=== PATIENT | female | born 1990 | race Caucasian/White ===

== ENCOUNTER → 2018-12-04 | Outpatient (CLI) | payer OTHER ==
[2018-12-04 15:58] LABS: Vitamin D 25 Hydroxy 27.4 ng/mL (30.0-100.0)
[2018-12-04 16:07] LABS: Insulin Level 4.8 mIU/mL (3.0-25.0)
[2018-12-04 16:16] LABS: ALT 17 U/L (8-44); AST 24 U/L (13-35); Glucose 89 mg/dL (70-110)
[2018-12-04 16:26] LABS: HCG,Quantitative Serum <2.0 mIU/mL
[2018-12-04 17:39] LABS: Hemoglobin A1C 5.3 % (4.0-6.0)
[2018-12-04 17:40] LABS: Thyroid Peroxidase Antibodies 970.7 U/mL (0.0-60.0)
[2018-12-05 12:28] LABS: Anti-Mullerian Hormone 5.87 ng/mL (0.69 - 13.39)
[2018-12-06 05:44] LABS: Varicella IgM Antibody 0.34 INDEX (<=0.90)
== END | disposition home or self-care (01) ==
LOC: LABWHC1 08:38
PROVIDERS: ATTEND Physician Assistant
DX: N92.6 Irregular menstruation, unspecified (principal)
CPT/HCPCS: 36415; 82306; 82397; 82565; 82670; 82947; 83001; 83036; 83525; 84146; 84402; 84403; 84439; 84443; 84450; 84460; 84481; 84520; 84702; 86376; 86762; 86787; 86800; 86850; 86900; 86901

== ENCOUNTER 2020-03-18 06:02 | Inpatient (IN) | payer OTHER ==
[2020-03-18] MEDS ORDERED: TERBUTALINE 1 MG/ML VIAL SQ PRN (06:17)
[2020-03-18] MEDS ORDERED: OXYTOCIN 10 UNIT/ML 1 ML VIAL IM PRN (06:17)
[2020-03-18] MEDS ORDERED: LIDOCAINE 0.5% (PF) 5 MG/ML (50 ML SDV) SQ PRN (06:17)
[2020-03-18] MEDS ORDERED: METHYLERGONOVINE 0.2 MG/ML 1 ML AMP IM PRN (06:17)
[2020-03-18] MEDS ORDERED: CARBOPROST TROMETHAMINE 250 MCG/ML 1 ML AMP IM PRN (06:17)
[2020-03-18] MEDS: LACTATED RINGERS 1,000 ML IV SCH ×3 (06:27→16:54)
[2020-03-18] MEDS ORDERED: LACTATED RINGERS 1,000 ML IV SCH ×2 (06:30→20:30)
[2020-03-18] MEDS ORDERED: OXYTOCIN 30 UNITS/500 ML NS 30 UNIT in SALINE 1 500ML.BAG IV SCH (06:30)
[2020-03-18 06:59] LABS: Basophils # (A) 0.1 k/uL (0-0.2); Basophils % (A) 1 %; Eosinophils # (A) 0.2 k/uL (0-0.7); Eosinophils % (A) 2 %; HCT 32.7 % (34.0-46.0); HGB 10.6 gm/dL (11.4-16.0); Lymphocytes # (A) 1.6 k/uL (1.0-4.8); Lymphocytes % (A) 19 %; MCH 27.4 pg (25.0-35.0); MCHC 32.5 g/dL (31.0-37.0); MCV 84.4 fL (80.0-100.0); Mean Platelet Volume 9.3; Monocytes # (A) 0.6 k/uL (0-1.0); Monocytes % (A) 7 %; Neutrophils # (A) 5.8 k/uL (1.3-7.7); Neutrophils % (A) 68 %; Platelet Count 287 k/uL (150-450); RBC 3.87 m/uL (3.80-5.40); RDW 14.6 % (11.5-15.5); WBC 8.5 k/uL (3.8-10.6)
[2020-03-18] MEDS ORDERED: BUTORPHANOL 1 MG/ML 1 ML VIAL IV PRN (08:40)
[2020-03-18] MEDS ORDERED: PRENATAL VIT-IRON-FOLIC ACID 1 EACH CAP PO ONE (08:45)
[2020-03-18] MEDS ORDERED: fentaNYL (PF) 50 MCG/ML 5 ML AMP ONE ×2 (16:54→19:45)
[2020-03-18] MEDS ORDERED: ROPIVACAINE 5MG/ML 20ML VIAL ONE (16:54)
[2020-03-18] MEDS ORDERED: SODIUM CHLORIDE 0.9% 100 ML BAG ONE (16:54)
[2020-03-18] MEDS ORDERED: CITRIC ACID-SODIUM CITRATE 15 ML CUP PO ONE (18:59)
[2020-03-18] MEDS ORDERED: LIDOCAINE 2% (PF) 20 MG/ML 2 ML VIAL ONE (19:45)
[2020-03-18] MEDS ORDERED: ONDANSETRON 4 MG/2 ML VIAL ONE (19:45)
[2020-03-18] MEDS ORDERED: MORPHINE SULFATE (PF) 0.3 MG/0.3 ML SYR ONE (19:45)
[2020-03-18] MEDS ORDERED: OXYTOCIN 10 UNIT/ML 1 ML VIAL ONE (19:45)
[2020-03-18] MEDS ORDERED: ONDANSETRON 4 MG/2 ML VIAL IVP PRN (20:26)
[2020-03-18] MEDS ORDERED: SIMETHICONE 80 MG CHEWABLE PO PRN (20:26)
[2020-03-18] MEDS ORDERED: ACETAMINOPHEN TAB 325 MG TAB PO PRN (20:26)
[2020-03-18] MEDS ORDERED: ACETAMINOPHEN IV (For NPO) 1,000 MG in EMPTY BAG 1 BAG IVPB ONE (20:26)
[2020-03-18] MEDS ORDERED: NALOXONE 0.4 MG/ML 1 ML VIAL IV PRN (20:26)
[2020-03-18] MEDS ORDERED: METOCLOPRAMIDE 5 MG/ML 2 ML VIAL IVP PRN (20:26)
[2020-03-18] MEDS ORDERED: diphenhydrAMINE 25 MG CAP PO PRN (20:26)
[2020-03-18] MEDS ORDERED: HYDROcodone/APAP 5-325MG 1 EACH TAB PO PRN (20:26)
[2020-03-18] MEDS ORDERED: IBUPROFEN 600 MG TAB PO PRN (20:26)
[2020-03-18] MEDS ORDERED: ZOLPIDEM 5 MG TAB PO PRN (20:26)
[2020-03-18] MEDS ORDERED: diphenhydrAMINE 50 MG/ML 1 ML VIAL IVP PRN ×2 (20:26)
[2020-03-18] MEDS ORDERED: diphenhydrAMINE 50 MG CAP PO PRN (20:26)
--- NOTE | 2020-03-18 20:29 | P.HPOB ---
History of Present Illness H&P Date: 03/18/20 Chief Complaint: IUP at 40 and 0/sevenths weeks This is a pleasant 29-year-old 1 para 0 at 40-0/7 weeks that presents to labor and delivery for induction of labor. Patient conceived with Femara. Patient has had relatively uncomplicated care. This morning she notes good movement. She denies contractions vaginal bleeding or loss of fluid. Review of Systems Constitutional: Denies fatigue, Denies fever Ears, nose, mouth and throat: Denies headache Cardiovascular: Reports leg edema Gastrointestinal: Denies constipation, Denies diarrhea, Denies nausea, Denies vomiting Genitourinary: Reports Past Medical History Past Medical History: No Reported History History of Any Multi-Drug Resistant Organisms: None Reported Past Surgical History: No Surgical Hx Reported Past Anesthesia/Blood Transfusion Reactions: No Reported Reaction Past Psychological History: No Psychological Hx Reported Smoking Status: Never smoker Past Alcohol Use History: None Reported Past Drug Use History: None Reported - Past Family History Mother Family Medical History: No Reported History Medications and Allergies Home Medications Medication Instructions Recorded Confirmed Type Pnv No.95/Ferrous Fum/Folic AC 1 tab PO ONCE 03/18/20 03/18/20 History [ Multivitamin Tablet] Allergies Allergy/AdvReac Type Severity Reaction Status Date / Time No Known Allergies Allergy Verified 03/18/20 06:15 Exam Osteopathic Statement: *. No significant issues noted on an osteopathic structural exam other than those noted in the History and Physical/Consult. 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 On cervical exam cervix is noted to be 1/50/-2 amniotomy is performed and clear fluid was obtained. Results Result Diagrams: 03/18/20 06:20 Abnormal Lab Results - Last 24 Hours (Table) 07/14/20 Range/Units 06:20 Hgb 10.6 L (11.4-16.0) gm/dL Hct 32.7 L (34.0-46.0) % Assessment and Plan (1) Term Current Visit: Yes Status: Acute Code(s): Z34.90 - ENCNTR FOR SUPRVSN OF NORMAL , UNSP, UNSP TRIMESTER SNOMED Code(s): 26775901 Plan: Patient is admitted to labor and delivery for planned Pitocin induction of lab or. Pitocin induction is begun per hospital protocol. Options for analgesia during labor discussed Stadol/epidural. Patient will consider and let us know her decision. We will monitor closely.
[2020-03-18] MEDS ORDERED: OXYTOCIN 20 UNITS/1000 ML NS 1,000 ML IV SCH (20:30)
--- NOTE | 2020-03-18 20:33 | P.OP ---
Date of Procedure: 03/18/20 Preoperative Diagnosis: IUP at 40 and 0, arrest of descent and dilation, suspected occiput posterior presentation Postoperative Diagnosis: Same Procedure(s) Performed: Primary low transverse section Anesthesia: epidural (With Duramorph) Surgeon: Lindsay Palacios Pulverizer Operator #1: Alondra Velazquez Estimated Blood Loss (ml): 600 IV fluids (ml): 1,100 Urine output (ml): 400 Pathology: none sent Condition: stable Disposition: observation Indications for Procedure: This pleasant 29-year-old 1 para 0 at 40-0/7 weeks presented to labor and delivery this morning for elective induction of labor. Patient was noted to be 1-2 cm/50/-2. Patient made minimal progress throughout the day suspected occiput posterior presentation was noted given contraction pattern and lack of descent. After many hours of being 3 cm decision was made for primary C- section. Patient agreed and all questions are answered. Operative Findings: Arcuate uterus is noted normal ovaries bilaterally. Viable male infant delivered weight of 6 lbs. 14 oz. at 1957, Apgars of 9/9 at one and 5 minutes respectively. Description of Procedure: Patient was taken back to the operating suite where epidural anesthesia was found be adequate. She was prepped and draped in the normal sterile fashion in the dorsal supine position. A Pfannenstiel skin incision was made the scalpel and carried through to the underlying layer of fascia. The fascia was then incised in the midline and extended laterally. The superior aspect the fascial incision was then grasped mildred clamps, elevated and underlying rectus muscles dissected off sharply. The inferior aspect of the fascial incision was then grasped with Mildred clamps, elevated and underlying rectus muscle was dissected off sharply. The rectus muscles were then in the midline the peritoneum was identified and entered. The bladder blade was then inserted into the pelvis. The vesicouterine peritoneum was identified and the bladder flap was then created using sharp and blunt dissection. Hysterotomy incision was made with the scalpel the was encountered in an occiput transverse presentation and delivered the umbilical cord was doubly clamped and cut and infant was handed off to awaiting RN. The center was then delivered manually the three-vessel cord being noted. Cord blood was taken prior to delivery of the placenta. The uterus was then delivered from the abdomen and cleared of all clots and debris. The hysterotomy incision was then closed 0 Vicryl in a running locked fashion 2. Bleeding was noted in the right-hand side of the uterus therefore 2 [id number] sutures were used to obtain hemostasis. The pelvis then copiously irrigated and uterus returned to the abdomen. Hemostasis was appreciated. The gutters were then cleared of all clots and debris. Uterus is noted to be firm. The fascia was then closed with 0 Vicryl in a running fashion from one lateral edge the other lateral edge. Subcu tissue was irrigated and found to be hemostatic. The skin was then closed with 4-0 Vicryl in a subcuticular fashion. Steri-Strips and sterile dressings were applied as needed. Patient and tolerated procedure well and were taken to their delivery suite. All counts were noted be correct 2 at the end of the procedure.
[2020-03-18] MEDS ORDERED: IBUPROFEN IV 800 MG in SODIUM CHLORIDE 0.9% 250 ML IV ONE (21:00)
[2020-03-19 07:02] LABS: Basophils % (A) 0 %; Eosinophils # (A) 0.1 k/uL (0-0.7); Eosinophils % (A) 0 %; HCT 23.4 % (34.0-46.0); Lymphocytes # (A) 1.7 k/uL (1.0-4.8); Lymphocytes % (A) 11 %; MCH 28.6 pg (25.0-35.0); MCHC 33.5 g/dL (31.0-37.0); MCV 85.3 fL (80.0-100.0); Mean Platelet Volume 8.4; Monocytes # (A) 0.8 k/uL (0-1.0); Monocytes % (A) 5 %; Neutrophils # (A) 12.7 k/uL (1.3-7.7); Neutrophils % (A) 82 %; Platelet Count 230 k/uL (150-450); RBC 2.75 m/uL (3.80-5.40); RDW 14.7 % (11.5-15.5); WBC 15.5 k/uL (3.8-10.6)
[2020-03-19 07:12] LABS: HGB 7.9 gm/dL (11.4-16.0)
[2020-03-19] MEDS: SENNOSIDES-DOCUSATE SODIUM 1 EACH TAB PO SCH ×2 (08:31→20:37)
--- NOTE | 2020-03-19 08:32 | P.PNOBGPC ---
Subjective - Subjective Principal diagnosis: POD 1 LTCS Interval history: Patient did well overnight. She is ambulating without difficulty, we are awaiting spontaneous void status post Roy removal. She states her pain is well-controlled. She is breast-feeding without difficulty. She denies concerns this morning. Patient reports: Reports appetite normal, Reports pain well controlled, Reports ambulating normally [place]: doing well, nursing well Objective - Vital Signs Latest vital signs: Vital Signs Temp Pulse Resp BP Pulse Ox 03/19/20 04:00 98.3 F 89 16 125/77 96 03/19/20 00:00 98.4 F 86 16 124/78 97 03/18/20 22:30 99 16 132/91 99 03/18/20 22:00 88 16 128/59 100 03/18/20 21:30 107 H 16 112/72 100 03/18/20 21:15 89 16 115/70 100 03/18/20 21:00 95 16 127/71 100 03/18/20 20:45 122 H 16 100 03/18/20 20:30 96.9 F L 97 16 128/73 100 Intake and Output 03/18/20 03/19/20 03/19/20 22:59 06:59 14:59 Output Total 2700 2300 Balance -2700 -2300 Output: Urine 800 2300 Uretheral (Roy) 700 Estimated Blood Loss 1900 Other: Voiding Method Indwelling Catheter Indwelling Catheter # Voids 0 - Exam Extremities: Present: normal, edema Abdomen: Present: normal appearance, soft Incision: Present: normal, dry Uterus: Present: normal, firm - Labs Labs: Abnormal Lab Results - Last 24 Hours (Table) 03/19/20 Range/Units 06:27 WBC 15.5 H (3.8-10.6) k/uL RBC 2.75 L (3.80-5.40) m/uL Hgb 7.9 L D (11.4-16.0) gm/dL Hct 23.4 L (34.0-46.0) % Neutrophils # 12.7 H (1.3-7.7) k/uL Assessment and Plan (1) Term Current Visit: Yes Status: Acute Code(s): Z34.90 - ENCNTR FOR SUPRVSN OF NORMAL , UNSP, UNSP TRIMESTER SNOMED Code(s): 38394829 (2) Arrest of dilation, delivered, current hospitalization Current Visit: Yes Status: Acute Code(s): O62.1 - SECONDARY UTERINE INERTIA SNOMED Code(s): 36069853 (3) Arrest of descent, delivered, current hospitalization Current Visit: Yes Status: Acute Code(s): O62.1 - SECONDARY UTERINE INERTIA SNOMED Code(s): 58367363 (4) Status post delivery Current Visit: Yes Status: Acute Code(s): Z98.891 - HISTORY OF UTERINE SCAR FROM PREVIOUS SURGERY SNOMED Code(s): 687185176 Plan: This 29-year-old 1 now para 1 status post primary for arrest of descent and dilation is doing well this morning. Patient is ambulating wit hout difficulty. Her pain is well-controlled. We'll encourage increased ambulation and continue routine postoperative care. Anticipate discharge home tomorrow.
--- NOTE | 2020-03-19 11:19 | P.PN ---
Progress Note - Text 03/19 848 29-year-old female status post , patient had Duramorph for postop pain control. Patient seen and evaluated this morning she has a VAS score of 0 with no nausea vomiting or pruritus
[2020-03-19] MEDS: IBUPROFEN 200 MG TAB PO PRN ×2 (13:31→20:36)
[2020-03-20] MEDS: IBUPROFEN 200 MG TAB PO PRN ×2 (03:12→09:48)
--- NOTE | 2020-03-20 08:29 | P.DS ---
Providers Date of admission: 03/18/20 06:02 Expected date of discharge: 03/20/20 Attending physician: Lindsay Palacios Primary care physician: Stated None - Discharge Diagnosis(es) (1) Term Current Visit: Yes Status: Acute (2) Arrest of dilation, delivered, current hospitalization Current Visit: Yes Status: Acute (3) Arrest of descent, delivered, current hospitalization Current Visit: Yes Status: Acute (4) Status post delivery Current Visit: Yes Status: Acute Hospital Course: This is a 29-year-old 1 para 0 that presented to labor and delivery at 40-0/7 weeks for induction of labor. Patient had been receiving routine care which has been essentially uncomplicated. Patient did conceive this with Femara. Patient had a normal blood type of O+. Patient was admitted to labor and delivery for Pitocin induction of labor. Patient was noted to be 1-2 cm upon admission. Patient progressed very slowly through labor amniotomy was performed and clear fluid was obtained. No descent was noted after properly 13 hours of labor. Patient had only dilated to 3 cm at that time. At that time patient was offered primary for arrest of descent and dilation versus further proceeding with induction of labor. Patient elected primary . was performed without difficulty for further details on the please see the operative report. Patient delivered a liveborn male at 1957, weight of 6 lbs. 14 oz. with Apgars of 9 and 9 at one and 5 minutes respectively. Patient's course has been uneventful. On this post day #2 she is ambulating and voiding without difficulty. She is tolerating a regular diet without nausea or vomiting. She states her pain is well-controlled and she does wish discharge home. She is breast-feeding also. Patient Condition at Discharge: Good Plan - Discharge Summary New Discharge Prescriptions: No Action Pnv No.95/Ferrous Fum/Folic AC [ Multivitamin Tablet] 1 tab PO ONCE Discharge Medication List Pnv No.95/Ferrous Fum/Folic AC [ Multivitamin Tablet] 1 tab PO ONCE 03/18/20 [History] Follow up Appointment(s)/Referral(s): Lindsay Palacios DO [Doctor of Osteopathic Medicine] - 2 Weeks Patient Instructions/Handouts: (DC), (GEN) Activity/Diet/Wound Care/Special Instructions: No tub baths or intercourse until 6 weeks . Discharge Disposition: HOME SELF-CARE
[2020-03-20 10:08] VITALS: BP 115/69; PULSE 80; RESP 16; TEMP 97.6
== END 2020-03-20 15:45 | disposition home or self-care (01) | DRG 788 ==
LOC: 4FBP 06:02
PROVIDERS: ADMIT Obstetrics & Gynecology Obstetrics; ATTEND Obstetrics & Gynecology Obstetrics
PROC: 00HU33Z Insertion of Infusion Device into Spinal Canal, Percutaneous Approach (ICD-10-PCS; principal; 2020-03-18 19:45)
PROC: 3E0R3BZ Introduction of Anesthetic Agent into Spinal Canal, Percutaneous Approach (ICD-10-PCS; principal; 2020-03-18 19:45)
PROC: 10D00Z1 Extraction of Products of Conception, Low, Open Approach (ICD-10-PCS; principal; 2020-03-18 19:45)
DX: O62.0 Primary inadequate contractions (principal); O62.1 Secondary uterine inertia; Q51.810 Arcuate uterus; Z37.0 Single live birth; Z3A.40 40 weeks gestation of pregnancy
CPT/HCPCS: 85025; 86850; 86900; 86901

== ENCOUNTER 2023-02-14 10:04 | Inpatient (IN) | payer OTHER ==
[2023-02-14] MEDS ORDERED: TRANEXAMIC ACID IN NACL,ISO-OS 1,000 MG in EMPTY BAG 1 BAG IV PRN (10:21)
[2023-02-14] MEDS ORDERED: OXYTOCIN 10 UNIT/ML 1 ML VIAL IM PRN (10:21)
[2023-02-14] MEDS ORDERED: miSOPROStoL 200 MCG TAB PO PRN (10:21)
[2023-02-14] MEDS ORDERED: METHYLERGONOVINE 0.2 MG/ML 1 ML AMP IM PRN (10:21)
[2023-02-14] MEDS ORDERED: CITRIC ACID-SODIUM CITRATE 15 ML CUP PO ONE (10:21)
[2023-02-14] MEDS ORDERED: CARBOPROST TROMETHAMINE 250 MCG/ML 1 ML AMP IM PRN (10:21)
[2023-02-14] MEDS ORDERED: OXYTOCIN 30 UNITS/500 ML NS 30 UNIT in SALINE 1 500ML.BAG IV SCH (10:30)
[2023-02-14] MEDS: LACTATED RINGERS 1,000 ML IV SCH ×4 (10:34→20:24)
[2023-02-14 11:17] LABS: Basophils % (A) 0 %; Eosinophils # (A) 0.1 k/uL (0-0.7); Eosinophils % (A) 1 %; HGB 10.3 gm/dL (11.4-16.0); Hypochromasia Slight; Lymphocytes # (A) 1.6 k/uL (1.0-4.8); Lymphocytes % (A) 15 %; MCH 26.4 pg (25.0-35.0); MCHC 32.3 g/dL (31.0-37.0); Mean Platelet Volume 8.6; Monocytes # (A) 0.5 k/uL (0-1.0); Monocytes % (A) 5 %; Neutrophils # (A) 7.8 k/uL (1.3-7.7); Neutrophils % (A) 77 %; Platelet Count 329 k/uL (150-450); RDW 15.1 % (11.5-15.5); WBC 10.2 k/uL (3.8-10.6)
[2023-02-14] MEDS ORDERED: MORPHINE SULFATE (PF) 0.3 MG/0.3 ML SYR ONE (11:55)
[2023-02-14] MEDS ORDERED: fentaNYL (PF) 50 MCG/ML 2 ML AMP ONE (11:55)
--- NOTE | 2023-02-14 12:43 | P.HPOB ---
History of Present Illness H&P Date: 02/14/23 Chief Complaint: IUP @ 39 weeks, h/o section desres repeat This is a 32yo at 39 2/7 weeks of that present for RCS. She has been receiving routine care with myself which has been essentially uncomplicated. she is noting good FM, denies CTX, LOF or VB. she has a known blood type of A+, rubella status immune, B surface antigen negative, HIV negative, RPR nonreactive, group beta strep cultures are negative Review of Systems Constitutional: Denies chills, Denies fatigue, Denies fever Ears, nose, mouth and throat: Denies headache Cardiovascular: Denies leg edema Gastrointestinal: Denies nausea, Denies vomiting Genitourinary: Reports Past Medical History Past Medical History: No Reported History History of Any Multi-Drug Resistant Organisms: None Reported Past Surgical History: Section Past Anesthesia/Blood Transfusion Reactions: No Reported Reaction Smoking Status: Never smoker - Past Family History Mother Family Medical History: No Reported History Medications and Allergies Home Medications Medication Instructions Recorded Confirmed Type Pnv No.95/Ferrous Fum/Folic AC 1 tab PO DAILY 03/18/20 02/14/23 History [ Multivitamin Tablet] Aspirin 81 mg PO DAILY 02/10/23 02/14/23 History Allergies Allergy/AdvReac Type Severity Reaction Status Date / Time No Known Allergies Allergy Verified 02/14/23 10:22 Exam Osteopathic Statement: *. No significant issues noted on an osteopathic structural exam other than those noted in the History and Physical/Consult. Results Result Diagrams: 02/14/23 10:45 Assessment and Plan (1) H/O section Current Visit: Yes Status: Acute Code(s): Z98.891 - HISTORY OF UTERINE SCAR FROM PREVIOUS SURGERY SNOMED Code(s): 056766517 (2) Term Current Visit: No Status: Acute Code(s): Z34.90 - ENCNTR FOR SUPRVSN OF NORMAL , UNSP, UNSP TRIMESTER SNOMED Code(s): 48117611 Plan: 32 yo at 39 2/7 weeks that presents for RCS. she has a h/o LTCS and desires repeat section. surgery is reviewed and questions are answered will proceed with RCS.
[2023-02-14] MEDS ORDERED: diphenhydrAMINE 25 MG CAP PO PRN (12:47)
[2023-02-14] MEDS ORDERED: METOCLOPRAMIDE 5 MG/ML 2 ML VIAL IVP PRN (12:47)
[2023-02-14] MEDS ORDERED: diphenhydrAMINE 50 MG CAP PO PRN (12:47)
[2023-02-14] MEDS ORDERED: NALOXONE 0.4 MG/ML 1 ML VIAL IV PRN (12:47)
[2023-02-14] MEDS ORDERED: diphenhydrAMINE 50 MG/ML 1 ML VIAL IVP PRN ×2 (12:47)
[2023-02-14] MEDS ORDERED: ONDANSETRON 4 MG/2 ML VIAL IVP PRN (12:47)
[2023-02-14] MEDS ORDERED: ZOLPIDEM 5 MG TAB PO PRN (12:47)
--- NOTE | 2023-02-14 12:47 | P.OP ---
Date of Procedure: 02/14/23 Preoperative Diagnosis: IUP at 39-2/7 weeks, history of 1, desires repeat Postoperative Diagnosis: Same Procedure(s) Performed: Repeat section Anesthesia: spinal Surgeon: Lindsay Palacios Director Digital #1: Gerry Dunlap Estimated Blood Loss (ml): 285 IV fluids (ml): 1,000 Urine output (ml): 200 Pathology: none sent Condition: stable Disposition: observation Indications for Procedure: History of 1, desires repeat Operative Findings: Thin lower uterine segment was appreciated. Double layer closure was performed. Normal tubes and ovaries were appreciated. Viable female delivered at 1216, weight of 6 lbs. 13 oz., Apgars of 9 and 9 at one and 5 minutes respectively. Description of Procedure: Patient was taken back to the operating suite where spinal anesthesia was found be adequate. She was prepped and draped in the normal sterile fashion in the dorsal supine position. A Pfannenstiel skin incision was made the scalpel and carried through the underlying layer of fascia. The fascia was incised in the midline and extended laterally. The superior aspect the fascial incision was then grasped dat clamps, elevated and underlying rectus muscles dissected off sharply. The inferior aspect of the fascial incision was then grasped dat clamps, elevated and underlying rectus muscles dissected off sharply. The rectus muscles were in the midline and peritoneum was identified and entered. The bladder blade was then inserted into the pelvis. The vesicouterine peritoneum was noted to be scarred midportion of the uterus therefore a bladder flap was created using sharp and blunt dissection. The bladder blade was then reinserted the pelvis. Hysterotomy incision was made with scalpel clear fluid was obtained upon rupture of membranes, was encountered in an occiput anterior presentation delivered in the usual fashion. The umbilical cord was doubly clamped and cut. A spontaneous cry was noted at . was handed off to awaiting RN. The placenta was then delivered manually and the uterus was exteriorized and cleared of all clots and debris. A very thin lower uterine segment was appreciated upon hysterotomy incision. The uterine incision was closed with 0 Vicryl in a running locked fashion. A second indicating suture was performed. Hemostasis was noted. The uterus was returned the abdomen and the gutters were cleared of all clots and debris. The uterine incision was inspected a small amount of bleeding was noted toward the left lateral side of the incision therefore a single [id number] suture was used to obtain hemostasis. On inspection hemostasis was appreciated. The peritoneum was loosely reapproximated. The rectus muscles were inspected and any points of bleeding were made hemostatic with the Bovie. The fascia was then closed with 0 Vicryl in a running fashion from one lateral edge the midline and the other lateral edge the midline. Subcutaneous tissue was irrigated and any points of bleeding were made hemostatic with the Bovie. The skin was closed with 4-0 Vicryl subcu care fashion. Suture strips and sterile dressings were applied. All counts were correct 2 at the end of the delivery. Patient and infant tolerated delivery well and are resting comfortably.
[2023-02-14] MEDS: ACETAMINOPHEN IV (For NPO) 1,000 MG in EMPTY BAG 1 BAG IVPB SCH ×2 (13:10→21:59)
[2023-02-14] MEDS: IBUPROFEN IV 800 MG in SODIUM CHLORIDE 0.9% 250 ML IV SCH (20:10)
[2023-02-14] MEDS: SENNOSIDES-DOCUSATE SODIUM 1 EACH TAB PO SCH (20:11)
[2023-02-14] MEDS: IBUPROFEN 600 MG TAB PO SCH (20:11)
[2023-02-14] MEDS: ACETAMINOPHEN TAB 500 MG TAB PO SCH ×2 (20:25→22:02)
[2023-02-15] MEDS: IBUPROFEN IV 800 MG in SODIUM CHLORIDE 0.9% 250 ML IV SCH ×2 (02:09→20:39)
[2023-02-15] MEDS: IBUPROFEN 600 MG TAB PO SCH ×5 (02:16→23:54)
[2023-02-15] MEDS: ACETAMINOPHEN TAB 500 MG TAB PO SCH ×4 (04:35→20:53)
[2023-02-15] MEDS: LACTATED RINGERS 1,000 ML IV SCH ×5 (04:46→22:39)
--- NOTE | 2023-02-15 05:35 | P.PN ---
Progress Note - Text Progress Note Date: 02/15/23 Patient doing well w/o complaints. Ambulating w/o paresthesia or weakness. Pain controlled. Denies headache or pruritis. Back - spinal site clean and dry A/P POD#1 s/p c-sec w/ spinal duramorph - doing well
[2023-02-15 06:41] LABS: Basophils % (A) 0 %; Eosinophils % (A) 0 %; HCT 28.1 % (34.0-46.0); HGB 8.9 gm/dL (11.4-16.0); Hypochromasia Slight; Lymphocytes # (A) 1.5 k/uL (1.0-4.8); Lymphocytes % (A) 11 %; MCH 25.9 pg (25.0-35.0); MCHC 31.7 g/dL (31.0-37.0); Mean Platelet Volume 8.5; Monocytes # (A) 0.7 k/uL (0-1.0); Monocytes % (A) 5 %; Neutrophils # (A) 11.3 k/uL (1.3-7.7); Neutrophils % (A) 82 %; Platelet Count 256 k/uL (150-450); RBC 3.43 m/uL (3.80-5.40); RDW 15.1 % (11.5-15.5); WBC 13.8 k/uL (3.8-10.6)
[2023-02-15] MEDS: SENNOSIDES-DOCUSATE SODIUM 1 EACH TAB PO SCH ×2 (08:59→20:54)
[2023-02-15] MEDS: PRENATAL VIT-IRON-FOLIC ACID 1 EACH TABLET PO SCH (09:00)
--- NOTE | 2023-02-15 13:02 | P.PNOBGPC ---
Subjective - Subjective Principal diagnosis: Septae 1, repeat section Interval history: 32-year-old G2 now 2 status post repeat section. Patient is doing well on this postoperative day #1 she is ambulating and voiding without difficulty. She is tolerating a regular diet without nausea or vomiting. She states her pain is well-controlled. Lochia is minimal Patient reports: Reports appetite normal, Reports voiding normally, Reports pain well controlled, Reports ambulating normally : doing well Objective - Vital Signs Latest vital signs: Vital Signs Temp Pulse Pulse Resp BP Pulse Ox 02/15/23 12:00 98.1 F 101 H 16 116/74 02/15/23 08:00 98.3 F 85 16 112/76 02/15/23 04:00 98.4 F 76 18 118/78 97 02/15/23 00:00 98.6 F 68 16 105/67 94 L 02/14/23 20:00 99.5 F 84 18 108/69 94 L 02/14/23 16:00 97.5 F L 84 16 114/65 02/14/23 15:00 86 16 114/55 99 02/14/23 14:30 97.5 F L 84 16 120/61 99 02/14/23 14:00 85 16 115/64 98 02/14/23 13:45 86 16 112/62 99 02/14/23 13:30 86 16 109/59 02/14/23 13:15 85 16 105/84 99 Intake and Output 02/14/23 02/15/23 02/15/23 22:59 06:59 14:59 Intake Total 2330 Output Total 1800 1300 Balance -1800 1030 Intake: IV 1250 Oral 1080 Output: Urine 1750 1300 Uretheral (Roy) 800 Output, Quantitative 50 Blood Loss Other: # Voids 1 - Exam Extremities: Present: normal. Absent: edema Abdomen: Present: normal appearance, soft Incision: Present: normal, intact Uterus: Present: normal, firm - Labs Labs: Abnormal Lab Results - Last 24 Hours (Table) 02/15/23 Range/Units 06:18 WBC 13.8 H (3.8-10.6) k/uL RBC 3.43 L (3.80-5.40) m/uL Hgb 8.9 L (11.4-16.0) gm/dL Hct 28.1 L (34.0-46.0) % Neutrophils # 11.3 H (1.3-7.7) k/uL Assessment and Plan (1) H/O section Current Visit: Yes Status: Acute Code(s): Z98.891 - HISTORY OF UTERINE SCAR FROM PREVIOUS SURGERY SNOMED Code(s): 857259592 (2) Term Current Visit: No Status: Acute Code(s): Z34.90 - ENCNTR FOR SUPRVSN OF NORMAL , UNSP, UNSP TRIMESTER SNOMED Code(s): 64745247 (3) Status post delivery Current Visit: No Status: Acute Code(s): Z98.891 - HISTORY OF UTERINE SCAR FROM PREVIOUS SURGERY SNOMED Code(s): 828034010 Plan: Patient is doing well postoperatively. Plan to continue routine postoperative care and anticipate discharge home tomorrow
[2023-02-16] MEDS: ACETAMINOPHEN TAB 500 MG TAB PO SCH (07:02)
[2023-02-16] MEDS: IBUPROFEN 600 MG TAB PO SCH ×2 (07:03→08:46)
[2023-02-16] MEDS: PRENATAL VIT-IRON-FOLIC ACID 1 EACH TABLET PO SCH (08:46)
[2023-02-16] MEDS: SENNOSIDES-DOCUSATE SODIUM 1 EACH TAB PO SCH (08:47)
[2023-02-16 11:02] VITALS: BP 109/69; PULSE 85; RESP 20; TEMP 99
--- NOTE | 2023-02-16 12:09 | P.DS ---
Providers Date of admission: 02/14/23 10:04 Expected date of discharge: 02/16/23 Attending physician: Lindsay Palacios Primary care physician: Stated None - Discharge Diagnosis(es) (1) H/O section Status: Acute (2) Term Status: Acute (3) Status post delivery Status: Acute Hospital Course: This is a 32-year-old that presented to labor and delivery on 02/14 for scheduled repeat section. Patient a prior for arrest of descent and dilation. Patient was counseled on options and she elected repeat section. Patient had been receiving routine care with myself which has been essentially uncomplicated. For full details on this patient please see the dictated history and physical. Patient was admitted and repeat section was performed without difficulty. Patient delivered a viable female infant at 1216, weight of 6 lbs. 13 oz., Apgars of 9 and 9 at one and 5 metastases or sexually. Patient's postoperative course has been uneventful. On this postoperative day #2 she is ambulating and voiding without difficulty. She is tolerating a regular diet without nausea or vomiting. She states her pain is well-controlled. She is breast-feeding. She states her lochia is minimal. She would like discharge home. Patient Condition at Discharge: Good Plan - Discharge Summary Discharge Rx Participant: No New Discharge Prescriptions: No Action Pnv No.95/Ferrous Fum/Folic AC [ Multivitamin Tablet] 1 tab PO DAILY Aspirin 81 mg PO DAILY Discharge Medication List Pnv No.95/Ferrous Fum/Folic AC [ Multivitamin Tablet] 1 tab PO DAILY 03/18/20 [History] Aspirin 81 mg PO DAILY 02/10/23 [History] Follow up Appointment(s)/Referral(s): Lindsay Palacios DO [Doctor of Osteopathic Medicine] - 2 Weeks Patient Instructions/Handouts: (DC), (GEN) Discharge Disposition: HOME SELF-CARE
== END 2023-02-16 10:15 | disposition home or self-care (01) | DRG 788 ==
LOC: 4FBP 10:04
PROVIDERS: ADMIT Obstetrics & Gynecology Obstetrics; ATTEND Obstetrics & Gynecology Obstetrics
PROC: 10D00Z1 Extraction of Products of Conception, Low, Open Approach (ICD-10-PCS; principal; 2023-02-14 12:00)
DX: O34.211 Maternal care for low transverse scar from previous cesarean delivery (principal); O34.593 Maternal care for other abnormalities of gravid uterus, third trimester; Z79.82 Long term (current) use of aspirin; Z28.310 Unvaccinated for COVID-19; Z3A.39 39 weeks gestation of pregnancy; Z37.0 Single live birth
CPT/HCPCS: 85025; 86850; 86900; 86901